=== PATIENT | male | born 1995 | race Caucasian/White ===

== ENCOUNTER 2018-03-25 14:33 | Emergency (ER) | payer BC ==
[~2018-03-25] VITALS: Ht 182.9 cm; Wt 68.2 kg
[~2018-03-25 14:33] MED LIST: NO HOME MEDICATIONS; TUSS PO
[2018-03-25 14:53] VITALS: BP 112/77; TEMP 97.8
[2018-03-25 16:13] LABS: BASO % 0.3 % (0.0-2.0); EOS % 0.1 % (0-4.0); GRAN # 13.5 (1.4-6.5); GRAN % 91.5 % (42.2-75.2); HEMATOCRIT 48.5 % (42.0-52.0); LYMPH # 0.5 (1.2-3.4); LYMPH % 3.2 % (20.0-51.0); MEAN CELL VOLUME 90 fl (80.0-100.0); MEAN CORPUSCULAR HEMOGLOBIN 31 pg (27.0-31.0); MEAN CORPUSCULAR HGB CONC 35 g/dl (33.0-37.0); MEAN PLATELET VOLUME 9.1 fl (7.4-10.4); MONO # 0.7 (0.1-0.6); MONO % 4.5 % (1.7-9.3); PLATELET COUNT 256 K/mm3 (130-400); RED BLOOD COUNT 5.41 M/mm3 (4.20-5.60); REDCELL DISTRIBUTION WIDTH-CV 12.2 % (11.5-14.5)
[2018-03-25 16:26] LABS: ALBUMIN 4.9 gm/dL (3.5-5.0); CALCIUM 9.5 mg/dL (8.4-10.2); CREATININE, serum 0.93 mg/dL (0.66-1.25); POTASSIUM 4.1 mmol/L (3.4-5.0); TOTAL PROTEIN 8.3 gm/dL (6.4-8.2)
[2018-03-25] MEDS ORDERED: ZOFRAN ODT4 MG PO (16:59)
[2018-03-25 17:10] VITALS: PULSE 91
== END 2018-03-25 17:10 | disposition home or self-care (01) ==
LOC: COL.ER 14:33
PROVIDERS: Emergency Medicine
DX: R11.2 Nausea with vomiting, unspecified (principal); R19.7 Diarrhea, unspecified; F17.210 Nicotine dependence, cigarettes, uncomplicated
CPT/HCPCS: J2405; J2550; J7030

== ENCOUNTER → 2023-07-03 | Outpatient (CLI) | payer BC ==
[~2023-07-03] MED LIST changes: +ZOFRAN ODT4 MG PO
== END ==
LOC: COL.RAD 13:23
DX: M17.12 Unilateral primary osteoarthritis, left knee (principal); S89.92XD Unspecified injury of left lower leg, subsequent encounter